=== PATIENT | female | born 1965 | race Caucasian/White ===

== ENCOUNTER 2017-07-27 18:00 | Inpatient (IN) | payer BC ==
[2017-07-27] MEDS ORDERED: Albuterol-Ipratrop 3 mg / 0.5 (3 ml) UD INH STA (18:15)
[2017-07-27] MEDS ORDERED: Albuterol-Ipratrop 3 mg / 0.5 (3 ml) UD ONE (18:16)
[2017-07-27] MEDS ORDERED: Sodium Chloride 0.9% 1,000 ML IV ONE (19:19)
--- NOTE | 2017-07-27 19:21 | C.PDOC ---
History Of Present Illness 52 y/o female with hx of garcia's palsy and HTN presents to ED with complaints of SOB when walking that began 3 days ago. Associated symptoms are coughing and sore throat. Denies ear pain, sputum, fever, or hx of smoking. Pt states she takes medication for her high blood pressure. Chief Complaint (Nursing): Shortness Of Breath History Per: Patient History/Exam Limitations: no limitations Onset/Duration Of Symptoms: Days (3) Current Symptoms Are (Timing): Still Present Initiating Event: denies: Out Of Medications, Exposure To Smoke Exacerbating Factor(s): Coughing Current Respiratory Medications: See Home Med List Associated Symptoms: denies: Fever, Chest Pain, Bloody Cough, Heart Racing, Leg/ Calf Pain Recent travel outside of the [place]: No Past Medical History Reviewed: Historical Data, Nursing Documentation, Vital Signs Vital Signs: Last Vital Signs Temp 98 F 07/27/17 21:29 Pulse 82 07/27/17 21:29 Resp 20 07/27/17 21:29 BP 140/80 07/27/17 21:29 Pulse Ox 100 07/27/17 22:01 - Medical History PMH: HTN Family History: States: Unknown Family Hx - Social History Hx Tobacco Use: No Hx Alcohol Use: No Hx Substance Use: No - Immunization History Hx Tetanus Toxoid Vaccination: No Hx Influenza Vaccination: No Hx Pneumococcal Vaccination: No Review Of Systems Constitutional: Negative for: Fever, Chills ENT: Positive for: Other (Sore throat ). Negative for: Ear Pain Cardiovascular: Negative for: Chest Pain Respiratory: Positive for: Cough (no sputum ), Shortness of Breath Gastrointestinal: Negative for: Nausea, Vomiting Neurological: Negative for: Weakness, Numbness Physical Exam - Physical Exam Appears: Well, Non-toxic Skin: Normal Color, Warm, Dry Head: Atraumatic, Normacephalic Eye(s): bilateral: Normal Inspection Oral Mucosa: Moist Throat: Erythema (enlarged tonsils), No Exudate Neck: Supple Chest: Symmetrical, No Tenderness Cardiovascular: Rhythm Regular Respiratory: Rales (bilateral; worse on lef than right), No Rhonchi, No Wheezing Gastrointestinal/Abdominal: Soft, No Tenderness Extremity: Normal ROM, No Pedal Edema Extremity: Bilateral: Normal Color And Temperature, Normal ROM Neurological/Psych: Oriented x3, Normal Speech, Normal Cognition ED Course And Treatment - Laboratory Results Result Diagrams: 07/27/17 19:59 07/27/17 19:59 ECG: Interpreted By Me ECG Rhythm: Sinus Rhythm ECG Interpretation: Normal, No Acute Changes Interpretation Of ECG: NSR,poor R wave progression,no rctopy,no acute STTW changes O2 Sat by Pulse Oximetry: 100 (RA) Pulse Ox Interpretation: Normal Medical Decision Making Medical Decision Making: Administered IV fluids. Ordered ABG, blood work, CXR, blood culture , urinalysis , flu AB swab, and Rapid strep. Disposition - Disposition Disposition: HOSPITALIZED Disposition Time: 21:00 Condition: FAIR - Clinical Impression Clinical Impression: Pneumonia - Scribe Statement The provider has reviewed the documentation as recorded by the Scribe Odalys Harper All medical record entries made by the Scribe were at my direction and personally dictated by me. I have reviewed the chart and agree that the record accurately reflects my personal performance of the history, physical exam, medical decision making, and the department course for this patient. I have also personally directed, reviewed, and agree with the discharge instructions and disposition. Decision To Admit - Pt Status Changed To: Hospital Disposition Of: Inpatient - Admit Certification Admit to Inpatient:: After my assessment, the patient will require hospitalization for at least two midnights. This is because of the severity of symptoms shown, intensity of services needed, and/or the medical risk in this patient being treated as an outpatient. - InPatient: Physician Admission Certification: I certify that this patient requires 2 or more midnights of care for the following reason:: pneumonia,hypoxia - . Bed Request Type: Regular Admitting Physician: Jaylene Toro Patient Diagnosis: Pneumonia
--- NOTE | 2017-07-27 19:24 | C.PDOC ---
Chief Complaint (Nursing): Shortness Of Breath Past Medical History Vital Signs: Last Vital Signs Temp 98.4 F 07/27/17 18:10 Pulse 86 07/27/17 18:10 Resp 28 H 07/27/17 18:10 BP 151/96 H 07/27/17 18:10 Pulse Ox 100 07/27/17 18:10 - Medical History PMH: HTN Family History: States: Unknown Family Hx - Social History Hx Tobacco Use: No Hx Alcohol Use: No Hx Substance Use: No - Immunization History Hx Tetanus Toxoid Vaccination: No Hx Influenza Vaccination: No Hx Pneumococcal Vaccination: No ED Course And Treatment O2 Sat by Pulse Oximetry: 100 Disposition - Disposition
[2017-07-27 20:15] LABS: ABG ALLEN TEST POS; ARTERIAL BLOOD GAS HCO3 28.2 mmol/L (21-28); ARTERIAL BLOOD GAS HEMOGLOBIN 11.2 g/dL (11.7-17.4); ARTERIAL BLOOD GAS O2 SAT 91.2 % (95-98); ARTERIAL BLOOD GAS PCO2 47 mm/Hg (35-45); ARTERIAL BLOOD GAS PH 7.41 (7.35-7.45); ARTERIAL BLOOD GAS PO2 54 mm/Hg (80-100); ARTERIAL BLOOD GAS TCO2 31.2 mmol/L (22-28)
[2017-07-27 20:16] LABS: BASO % 0.4 % (0.0-2.0); HEMOGLOBIN 11.4 g/dL (11.0-16.0); LYMPH % 37.5 % (20.0-40.0); MEAN CELL VOLUME 84.3 fL (81.0-99.0); MEAN CORPUSCULAR HEMOGLOBIN 28.1 pg (27.0-31.0); MEAN CORPUSCULAR HGB CONC 33.3 g/dL (33.0-37.0); MEAN PLATELET VOLUME 9.2 fL (7.2-11.7); MONO # 0.4 K/uL (0.0-0.8); NEUT # 1.2 K/uL (1.8-7.0); NEUT % 47.1 % (50.0-75.0); NRBC % 0.2 % (0.0-2.0); RBC 4.04 Mil/uL (3.80-5.20); RED CELL DISTRIBUTION WIDTH 12.8 % (11.5-14.5); WHITE BLOOD COUNT 2.6 K/uL (4.8-10.8)
[2017-07-27 20:35] LABS: ALB/GLOB RATIO 1.2 (1.0-2.1); ALBUMIN 3.9 g/dL (3.5-5.0); ALT/SGPT 40 U/L (9-52); AST/SGOT 36 U/L (14-36); BLOOD UREA NITROGEN 8 mg/dL (7-17); CALCIUM 9.1 mg/dl (8.6-10.4); GFR AFRICAN-AMERICAN > 60; GFR NON-AFRICAN AMERICAN > 60
[2017-07-27 20:40] LABS: SQUAMOUS EPITHIAL 2 /hpf (0-5); URINE BACTERIA RARE (<OCC); URINE BILIRUBIN NEGATIVE (NEGATIVE); URINE BLOOD NEGATIVE (NEGATIVE); URINE CLARITY Clear (Clear); URINE COLOR Yellow (YELLOW); URINE GLUCOSE (UA) NORMAL (Normal); URINE LEUKOCYTE ESTERASE NEG Leu/uL (Negative); URINE NITRATE NEGATIVE (NEGATIVE); URINE PROTEIN NEGATIVE (NEGATIVE); URINE UROBILINOGEN NORMAL mg/dL (0.2-1.0)
[2017-07-27] MEDS ORDERED: cefTRIAXone IV 1 gm in Dextros 50 ML IVPB ONE (20:58)
[2017-07-27 21:30] VITALS: RESP 20
[2017-07-28] MEDS ORDERED: Albuterol-Ipratrop 3 mg / 0.5 (3 ml) UD INH STA (01:13)
[2017-07-28] MEDS: Albuterol-Ipratrop 3 mg / 0.5 (3 ml) UD INH SCH ×4 (07:55→20:05)
--- NOTE | 2017-07-28 09:50 | RAD ---
HISTORY: SOB COMPARISON: Comparison chest 01/19/2016 TECHNIQUE: Chest PA and lateral FINDINGS: LUNGS: Coarsened/ increased interstitial markings ; rule out sequela of reactive/inflammatory airway disease or viral illness. . PLEURA: No significant pleural effusion identified. No pneumothorax apparent. CARDIOVASCULAR: Heart size is borderline/ mildly enlarged OSSEOUS STRUCTURES: No significant abnormalities. VISUALIZED UPPER ABDOMEN: Normal. OTHER FINDINGS: None. IMPRESSION: Coarsened/ increased interstitial markings ; rule out sequela of reactive/inflammatory airway disease or viral illness. .
[2017-07-28] MEDS: Enoxaparin 40 mg Syringe SC SCH (10:01)
[2017-07-28] MEDS: cefTRIAXone IV 1 gm in Dextros 50 ML IVPB SCH (10:02)
[2017-07-28] MEDS ORDERED: Potassium Chloride 20 mEq ER Tab PO ONE (11:00)
[2017-07-28] MEDS ORDERED: Albuterol-Ipratrop 3 mg / 0.5 (3 ml) UD INH PRN (11:03)
--- NOTE | 2017-07-28 11:15 | CP.PCM.HP ---
History of Present Illness - History of Present Illness History of Present Illness: pt came to er for progressive cough sob and had fever aching body started few days ago and has pnumonia Present on Admission - Present on Admission Any Indicators Present on Admission: No Review of Systems - Review of Systems Systems not reviewed;Unavailable: Acuity of Condition - Constitutional Constitutional: Fatigue, Fever - EENT Eyes: As Per HPI Ears: As Per HPI Nose/Mouth/Throat: As Per HPI - Breasts Breasts: As Per HPI - Cardiovascular Cardiovascular: Dyspnea, Palpitations - Respiratory Respiratory: Cough, Dyspnea, Wheezing - Gastrointestinal Gastrointestinal: As Per HPI - Genitourinary Genitourinary: As Per HPI - Reproductive: Female Reproductive:Female: As Per HPI - Menstruation Menstruation: As Per HPI - Musculoskeletal Musculoskeletal: As Per HPI - Integumentary Integumentary: As Per HPI - Neurological Additional comments: has bells palsy sinsce - Psychiatric Psychiatric: As Per HPI - Endocrine Endocrine: As Per HPI - Hematologic/Lymphatic Hematologic: As Per HPI Past Patient History - Infectious Disease Hx of Infectious Diseases: None - Past Medical History & Family History Past Medical History?: Yes - Past Social History Smoking Status: Never Smoked - CARDIAC Hx Hypertension: Yes - MUSCULOSKELETAL/RHEUMATOLOGICAL Hx Falls: No - PSYCHIATRIC Hx Substance Use: No - SURGICAL HISTORY Hx Surgeries: Yes Hx Hysterectomy: Yes - ANESTHESIA Hx Anesthesia: Yes Hx Anesthesia Reactions: No Hx Malignant Hyperthermia: No Has any member of the family had a problem w/ anesthesia?: No Meds Allergies/Adverse Reactions: Allergies Allergy/AdvReac Type Severity Reaction Status Date / Time No Known Allergies Allergy Verified 07/27/17 18:16 Physical Exam - Constitutional Appears: Non-toxic, In Acute Distress - Head Exam Head Exam: ATRAUMATIC - Eye Exam Additional comments: l side bells palsy face - ENT Exam ENT Exam: Normal Exam - Neck Exam Neck exam: Positive for: Full Rom - Respiratory Exam Respiratory Exam: Prolonged Expiratory Phase, Rales - Cardiovascular Exam Cardiovascular Exam: REGULAR RHYTHM - GI/Abdominal Exam GI & Abdominal Exam: Normal Bowel Sounds - Rectal Exam Rectal Exam: NORMAL INSPECTION - Extremities Exam Extremities exam: Positive for: normal inspection - Back Exam Back exam: NORMAL INSPECTION - Neurological Exam Neurological exam: Alert, Oriented x3 - Psychiatric Exam Psychiatric exam: Normal Affect - Skin Skin Exam: Normal Color Results - Vital Signs Recent Vital Signs: Last Vital Signs Temp 98.4 F 07/28/17 08:00 Pulse 98 H 07/28/17 08:00 Resp 20 07/28/17 08:00 BP 126/75 07/28/17 08:00 Pulse Ox 99 07/28/17 08:00 - Labs Result Diagrams: 07/27/17 19:59 07/27/17 19:59 Labs: Laboratory Results - last 24 hr 07/27/17 07/27/17 07/27/17 19:45 19:45 19:59 WBC 2.6 L RBC 4.04 Hgb 11.4 Hct 34.0 MCV 84.3 MCH 28.1 MCHC 33.3 RDW 12.8 Plt Count 135 MPV 9.2 Neut % (Auto) 47.1 L Lymph % (Auto) 37.5 [place] % (Auto) 15.0 H Eos % (Auto) 0.0 Baso % (Auto) 0.4 Neut # (Auto) 1.2 L Lymph # (Auto) 1.0 [place] # (Auto) 0.4 Eos # (Auto) 0.0 Baso # (Auto) 0.0 Puncture Site pCO2 pO2 HCO3 ABG pH ABG Total CO2 ABG O2 Saturation ABG Base Excess ABG Hemoglobin ABG Carboxyhemoglobin POC ABG HHb (Measured) ABG Methemoglobin [place] Test A-a O2 Difference Respiratory Index Hgb O2 Saturation FiO2 Sodium Potassium Chloride Carbon Dioxide Anion Gap BUN Creatinine Est GFR ( Amer) Est GFR (Non-Af Amer) Random Glucose Calcium Total Bilirubin AST ALT Alkaline Phosphatase C-React Prot High Sens NT-Pro-B Natriuret Pep Total Protein Albumin Globulin Albumin/Globulin Ratio Urine Color Urine Clarity Urine pH Ur Specific [place] Urine Protein Urine Glucose (UA) Urine Ketones Urine Blood Urine Nitrate Urine Bilirubin Urine Urobilinogen Ur Leukocyte Esterase Urine WBC (Auto) Urine RBC (Auto) Ur Squamous Epith Cells Urine Bacteria Influenza Typ A,B (EIA) Negative for flu a/b Grp A Beta Strep Ag Negative 07/27/17 07/27/17 07/27/17 19:59 20:10 20:14 WBC RBC Hgb Hct MCV MCH MCHC RDW Plt Count MPV Neut % (Auto) Lymph % (Auto) [place] % (Auto) Eos % (Auto) Baso % (Auto) Neut # (Auto) Lymph # (Auto) [place] # (Auto) Eos # (Auto) Baso # (Auto) Puncture Site Rra pCO2 47 H pO2 54 L HCO3 28.2 H ABG pH 7.41 ABG Total CO2 31.2 H ABG O2 Saturation 91.2 L ABG Base Excess 4.4 H ABG Hemoglobin 11.2 L ABG Carboxyhemoglobin 1.1 POC ABG HHb (Measured) 8.7 H ABG Methemoglobin 0.4 [place] Test Pos A-a O2 Difference 37.0 Respiratory Index 0.7 Hgb O2 Saturation 89.8 L FiO2 21.0 Sodium 139 Potassium 3.4 L Chloride 100 Carbon Dioxide 29 Anion Gap 13 BUN 8 Creatinine 0.6 L Est GFR ( Amer) > 60 Est GFR (Non-Af Amer) > 60 Random Glucose 111 H Calcium 9.1 Total Bilirubin 0.6 AST 36 ALT 40 Alkaline Phosphatase 63 C-React Prot High Sens NT-Pro-B Natriuret Pep Total Protein 7.1 Albumin 3.9 Globulin 3.2 Albumin/Globulin Ratio 1.2 Urine Color Yellow Urine Clarity Clear Urine pH 6.0 Ur Specific [place] 1.013 Urine Protein Negative Urine Glucose (UA) Normal Urine Ketones 1+ H Urine Blood Negative Urine Nitrate Negative Urine Bilirubin Negative Urine Urobilinogen Normal Ur Leukocyte Esterase Neg Urine WBC (Auto) 3 Urine RBC (Auto) 1 Ur Squamous Epith Cells 2 Urine Bacteria Rare Influenza Typ A,B (EIA) Grp A Beta Strep Ag 07/27/17 07/27/17 20:41 20:44 WBC RBC Hgb Hct MCV MCH MCHC RDW Plt Count MPV Neut % (Auto) Lymph % (Auto) [place] % (Auto) Eos % (Auto) Baso % (Auto) Neut # (Auto) Lymph # (Auto) [place] # (Auto) Eos # (Auto) Baso # (Auto) Puncture Site pCO2 pO2 HCO3 ABG pH ABG Total CO2 ABG O2 Saturation ABG Base Excess ABG Hemoglobin ABG Carboxyhemoglobin POC ABG HHb (Measured) ABG Methemoglobin [place] Test A-a O2 Difference Respiratory Index Hgb O2 Saturation FiO2 Sodium Potassium Chloride Carbon Dioxide Anion Gap BUN Creatinine Est GFR ( Amer) Est GFR (Non-Af Amer) Random Glucose Calcium Total Bilirubin AST ALT Alkaline Phosphatase C-React Prot High Sens > 15.00 H NT-Pro-B Natriuret Pep 110 Total Protein Albumin Globulin Albumin/Globulin Ratio Urine Color Urine Clarity Urine pH Ur Specific [place] Urine Protein Urine Glucose (UA) Urine Ketones Urine Blood Urine Nitrate Urine Bilirubin Urine Urobilinogen Ur Leukocyte Esterase Urine WBC (Auto) Urine RBC (Auto) Ur Squamous Epith Cells Urine Bacteria Influenza Typ A,B (EIA) Grp A Beta Strep Ag Assessment & Plan - Assessment and Plan (Free Text) Assessment: ac pnumonia hypokaleamia uti lecopeania hypoxeamia Plan: as per orders - Date & Time Date: 07/28/17 Time: :18
[2017-07-28] MEDS: Promethazine 12.5 mg/10 ml Syrup PO SCH ×3 (12:19→23:46)
[2017-07-28] MEDS ORDERED: Oxycodone/Acetaminophen 5/325 mg Tab PO PRN (21:52)
[2017-07-29] MEDS: Promethazine 12.5 mg/10 ml Syrup PO SCH ×3 (05:54→17:06)
[2017-07-29] MEDS: Albuterol-Ipratrop 3 mg / 0.5 (3 ml) UD INH SCH ×4 (07:52→19:48)
[2017-07-29 08:05] LABS: BLOOD UREA NITROGEN 3 mg/dL (7-17); CALCIUM 8.5 mg/dl (8.6-10.4); GFR AFRICAN-AMERICAN > 60; GFR NON-AFRICAN AMERICAN > 60
[2017-07-29 08:19] LABS: BASO % 0.3 % (0.0-2.0); HEMOGLOBIN 11.5 g/dL (11.0-16.0); LYMPH % 32.3 % (20.0-40.0); MEAN CELL VOLUME 83.9 fL (81.0-99.0); MEAN CORPUSCULAR HEMOGLOBIN 28.8 pg (27.0-31.0); MEAN CORPUSCULAR HGB CONC 34.3 g/dL (33.0-37.0); MEAN PLATELET VOLUME 8.8 fL (7.2-11.7); MONO # 0.4 K/uL (0.0-0.8); MONO % 13.2 % (0.0-10.0); NEUT # 1.7 K/uL (1.8-7.0); NEUT % 54.2 % (50.0-75.0); NRBC % 0.2 % (0.0-2.0); RED CELL DISTRIBUTION WIDTH 12.9 % (11.5-14.5); WHITE BLOOD COUNT 3.2 K/uL (4.8-10.8)
[2017-07-29 08:21] LABS: B-TYPE NATRIURETIC PEPTIDE 120 pg/mL (0-900)
[2017-07-29] MEDS ORDERED: Pneumococcal 23-Valent Vaccine IM ONE (10:00)
[2017-07-29] MEDS ORDERED: Influenza Vaccine 60 mcg/0.5 mL SYR (4YR UP) IM ONE (10:00)
[2017-07-29] MEDS: cefTRIAXone IV 1 gm in Dextros 50 ML IVPB SCH (10:51)
[2017-07-29] MEDS: Enoxaparin 40 mg Syringe SC SCH (10:51)
[2017-07-29] MEDS: Potassium Chloride 20 mEq ER Tab PO SCH ×2 (13:21→17:06)
--- NOTE | 2017-07-29 13:49 | CARD ---
APPROVED REPORT EXAM: Two-dimensional and M-mode echocardiogram with Doppler and color Doppler. Other Information Quality : GoodRhythm : INDICATION Chest Pain Palpitations 2D DIMENSIONS IVSd0.9 (0.7-1.1cm)LVDd4.1 (3.9-5.9cm) PWd1.1 (0.7-1.1cm)LVDs2.8 (2.5-4.0cm) FS (%) 31.2 %LVEF (%)59.5 (>50%) M-Mode DIMENSIONS Left Atrium (MM)3.57 (2.5-4.0cm)Aortic Root3.59 (2.2-3.7cm) Aortic Cusp Exc.1.99 (1.5-2.0cm) Mitral Valve MV E Ebbjhafx41.2cm/sMV A Cdoflpay728.2cm/sE/A ratio0.6 TDI E/Lateral E'0.0E/Medial E'0.0 Tricuspid Valve TR Peak [id number]/sTR Peak Gr.[id number] LEFT VENTRICLE The left ventricle is normal size. There is normal left ventricular wall thickness. The left ventricular function is normal. The left ventricular ejection fraction is within the normal range. No regional wall motion abnormalities noted. Transmitral Doppler flow pattern is Grade I-abnormal relaxation pattern. No left ventricle thrombus noted on this study. There is no ventricular septal defect visualized. There is no left ventricular aneurysm. There is no mass noted in the left ventricle. RIGHT VENTRICLE The right ventricle is normal size. There is normal right ventricular wall thickness. The right ventricular systolic function is normal. ATRIA The left atrium size is normal. The right atrium size is normal. The interatrial septum is intact with no evidence for an atrial septal defect. AORTIC VALVE The aortic valve is normal in structure and function. No aortic regurgitation is present. There is no aortic valvular stenosis. There is no aortic valvular vegetation. MITRAL VALVE The mitral valve is normal in structure and function. There is no evidence of mitral valve prolapse. There is no mitral valve stenosis. There is no mitral valve regurgitation noted. TRICUSPID VALVE The tricuspid valve is normal in structure and function. There is mild tricuspid regurgitation. Right ventricular systolic pressure is estimated at 30-40 mmHg. There is mild pulmonary hypertension. There is no tricuspid valve prolapse or vegetation. There is no tricuspid valve stenosis. PULMONIC VALVE The pulmonary valve is normal in structure and function. There is no pulmonic valvular regurgitation. There is no pulmonic valvular stenosis. GREAT VESSELS The aortic root is normal in size. The ascending aorta is normal in size. The pulmonary artery is normal. The IVC is normal in size and collapses >50% with inspiration. PERICARDIAL EFFUSION The pericardium appears normal. There is no pleural effusion. <Conclusion> The left ventricular function is normal. The left ventricular ejection fraction is within the normal range. No regional wall motion abnormalities noted. The aortic valve is normal in structure and function. The mitral valve is normal in structure and function.
--- NOTE | 2017-07-29 18:10 | CP.PCM.PN ---
Subjective - Date & Time of Evaluation Date of Evaluation: 07/29/17 Time of Evaluation: 18:08 - Subjective Subjective: stillcoughing Objective - Vital Signs/Intake and Output Vital Signs (last 24 hours): Temp Pulse Resp BP Pulse Ox 98.8 F 87 20 97/65 L 95 07/29/17 15:00 07/29/17 15:00 07/29/17 15:00 07/29/17 15:00 07/29/17 15:00 Intake and Output: 07/29/17 07/29/17 06:59 18:59 Intake Total 300 480 Balance 300 480 - Medications Medications: Current Medications Albuterol/Ipratropium (Duoneb 3 Mg/0.5 Mg (3 Ml) Ud) 3 ml INH RQID [facility] Last Admin: 07/29/17 16:51 Dose: 3 ml Albuterol/Ipratropium (Duoneb 3 Mg/0.5 Mg (3 Ml) Ud) 3 ml INH RQ6 PRN PRN Reason: Cough Azithromycin (Zithromax) 500 mg PO DAILY [facility] Enoxaparin Sodium (Lovenox) 40 mg SC DAILY [facility] Last Admin: 07/29/17 10:51 Dose: 40 mg Home Med (Patient's Own Medication) 1 tab PO DAILY [facility] Ceftriaxone Sodium (Rocephin Iv 1 Gm Duplex) 50 mls @ 100 mls/hr IVPB DAILY [facility] Last Admin: 07/29/17 10:51 Dose: 100 mls/hr Metoprolol Tartrate (Lopressor) 50 mg PO DAILY [facility] Last Admin: 07/29/17 11:00 Dose: 50 mg Oxycodone/Acetaminophen (Percocet 5/325 Mg Tab) 1 tab PO Q6H PRN PRN Reason: pain Stop: 07/31/17 21:53 Last Admin: 07/28/17 22:03 Dose: 1 tab Promethazine HCl (Phenergan Syrup) 12.5 mg PO Q6 [facility] Last Admin: 07/29/17 17:06 Dose: 12.5 mg - Labs Labs: 07/29/17 07:43 07/29/17 07:43 - Constitutional Appears: Non-toxic - Head Exam Head Exam: NORMAL INSPECTION - Eye Exam Eye Exam: Normal appearance Pupil Exam: PERRL - ENT Exam ENT Exam: Mucous Membranes Moist - Neck Exam Neck Exam: Full ROM - Respiratory Exam Respiratory Exam: Rales, NORMAL BREATHING PATTERN - Cardiovascular Exam Cardiovascular Exam: REGULAR RHYTHM - Rectal Exam Rectal Exam: NORMAL INSPECTION - Extremities Exam Extremities Exam: Normal Inspection - Neurological Exam Neurological Exam: Normal Gait - Psychiatric Exam Psychiatric exam: Normal Affect - Skin Skin Exam: Normal Color Assessment and Plan - Assessment and Plan (Free Text) Assessment: pnumonia bells palsy Plan: as per orders
[2017-07-29 23:27] VITALS: BP 118/74; PULSE 94; TEMP 98.6; O2SAT 99
[2017-07-30] MEDS: Promethazine 12.5 mg/10 ml Syrup PO SCH ×3 (00:18→11:21)
[2017-07-30] MEDS: Albuterol-Ipratrop 3 mg / 0.5 (3 ml) UD INH SCH (07:43)
[2017-07-30 07:56] LABS: BLOOD UREA NITROGEN 5 mg/dL (7-17); CALCIUM 9.2 mg/dl (8.6-10.4); GFR AFRICAN-AMERICAN > 60; GFR NON-AFRICAN AMERICAN > 60
[2017-07-30] MEDS: Enoxaparin 40 mg Syringe SC SCH (09:37)
[2017-07-30] MEDS: cefTRIAXone IV 1 gm in Dextros 50 ML IVPB SCH (09:37)
[2017-07-30] MEDS ORDERED: VIBERZI 100 MG PO SCH (10:00)
--- NOTE | 2017-07-30 10:12 | CP.PCM.PN ---
Subjective - Date & Time of Evaluation Date of Evaluation: 07/30/17 Time of Evaluation: 10:10 - Subjective Subjective: feels beter less cough slight tremors Objective - Vital Signs/Intake and Output Vital Signs (last 24 hours): Temp Pulse Resp BP Pulse Ox 98.6 F 94 H 20 118/74 99 07/29/17 23:25 07/29/17 23:25 07/29/17 23:25 07/29/17 23:25 07/29/17 23:25 Intake and Output: 07/30/17 07/30/17 06:59 18:59 Intake Total 400 120 Balance 400 120 - Medications Medications: Current Medications Azithromycin (Zithromax) 500 mg PO DAILY [facility] Last Admin: 07/30/17 09:36 Dose: 500 mg Enoxaparin Sodium (Lovenox) 40 mg SC DAILY [facility] Last Admin: 07/30/17 09:37 Dose: 40 mg Home Med (Patient's Own Medication) 1 tab PO DAILY [facility] Last Admin: 07/30/17 09:37 Dose: 1 tab Ceftriaxone Sodium (Rocephin Iv 1 Gm Duplex) 50 mls @ 100 mls/hr IVPB DAILY [facility] Last Admin: 07/30/17 09:37 Dose: 100 mls/hr Metoprolol Tartrate (Lopressor) 50 mg PO DAILY [facility] Last Admin: 07/30/17 09:36 Dose: 50 mg Oxycodone/Acetaminophen (Percocet 5/325 Mg Tab) 1 tab PO Q6H PRN PRN Reason: pain Stop: 07/31/17 21:53 Last Admin: 07/28/17 22:03 Dose: 1 tab Promethazine HCl (Phenergan Syrup) 12.5 mg PO Q6 [facility] Last Admin: 07/30/17 06:11 Dose: Not Given - Labs Labs: 07/29/17 07:43 07/30/17 07:27 - Constitutional Appears: Non-toxic - Head Exam Head Exam: NORMAL INSPECTION - Eye Exam Eye Exam: Normal appearance Pupil Exam: NORMAL ACCOMODATION - ENT Exam ENT Exam: Mucous Membranes Moist - Neck Exam Neck Exam: Full ROM - Respiratory Exam Respiratory Exam: NORMAL BREATHING PATTERN - Cardiovascular Exam Cardiovascular Exam: REGULAR RHYTHM - GI/Abdominal Exam GI & Abdominal Exam: Normal Bowel Sounds - Rectal Exam Rectal Exam: NORMAL INSPECTION - Exam Exam: NORMAL INSPECTION - Back Exam Back Exam: NORMAL INSPECTION - Neurological Exam Neurological Exam: Oriented x3 - Skin Skin Exam: Normal Color Assessment and Plan - Assessment and Plan (Free Text) Assessment: ac pnumonia imprving tremors from albuterol no wheesing d/c albureol may discharge Plan: october d/c
[2017-07-30] MEDS ORDERED: Influenza Vaccine 60 mcg/0.5 mL SYR (4YR UP) IM ONE (15:00)
[2017-07-30] MEDS ORDERED: Pneumococcal 23-Valent Vaccine IM ONE (15:00)
--- NOTE | 2017-07-30 17:11 | CP.PCM.PN ---
Subjective - Date & Time of Evaluation Date of Evaluation: 07/30/17 Time of Evaluation: 11:00 - Subjective Subjective: Alert, awake, denies cough or distress. Objective - Vital Signs/Intake and Output Vital Signs (last 24 hours): Temp Pulse Resp BP Pulse Ox 98.6 F 94 H 20 118/74 99 07/29/17 23:25 07/29/17 23:25 07/29/17 23:25 07/29/17 23:25 07/29/17 23:25 Intake and Output: 07/30/17 07/30/17 06:59 18:59 Intake Total 400 600 Balance 400 600 - Labs Labs: 07/29/17 07:43 07/30/17 07:27 Assessment and Plan - Assessment and Plan (Free Text) Assessment: Patient admitted with pneumonia, seen and examined. Alert, oriented, ambulatory , no tremors or distress noted. Discussed with DR Toro, plan to discharge home today on zithromax 500mg po daily for 3 days more. Advised to follow up with PMD in 1 week.
--- NOTE | 2017-07-31 14:09 | CARD ---
APPROVED REPORT EKG Measurement Heart [id number] <Conclusion> Normal sinus rhythm Left axis deviation Possible Anterior infarct, age undetermined Abnormal ECG
== END 2017-07-30 15:57 | disposition home or self-care (01) | DRG 194 ==
LOC: C.ER 18:00 → C.9E 20:46 → C.3T 21:15
PROVIDERS: ADMIT Internal Medicine; ATTEND Internal Medicine
DX: J18.9 Pneumonia, unspecified organism (principal); N39.0 Urinary tract infection, site not specified; D72.819 Decreased white blood cell count, unspecified; E87.6 Hypokalemia; R09.02 Hypoxemia; I10 Essential (primary) hypertension; Z90.710 Acquired absence of both cervix and uterus